=== PATIENT | female | born 1980 ===

== ENCOUNTER 2023-03-05 07:46 | Day surgery (SDC) | payer OTHER ==
[~2023-03-05] VITALS: Ht 154.9 cm; Wt 67.1 kg
[~2023-03-05 07:46] MED LIST: TOPROL XL50 M1 PO
[2023-03-05] MEDS ORDERED: PERCOCET 5-3251 EACH PO (12:40)
== END 2023-03-05 17:10 | disposition home or self-care (01) ==
LOC: CIR.AMB 07:46
PROVIDERS: ATTEND Surgery
DX: E05.10 Thyrotoxicosis with toxic single thyroid nodule without thyrotoxic crisis or storm (principal); E04.2 Nontoxic multinodular goiter; Z20.822 Contact with and (suspected) exposure to COVID-19